=== PATIENT | male | born 1985 | race American Indian/Alaskan Native ===

== ENCOUNTER 2021-12-07 22:21 | Emergency (ER) | payer OTHER ==
[2021-12-07 22:52] VITALS: BP 128/84
--- NOTE | 2021-12-08 00:09 | Event Note ---
Date: 12/08/21 Patient ambulatory with police custody, and in no acute distress. Patient signed out AGAINST MEDICAL ADVICE prior to my personal evaluation Vital Signs 12/07/21 22:43 Temperature 98 F Pulse Rate 78 Respiratory 18 Rate Blood Pressure 128/84 O2 Sat by Pulse 100 Oximetry
== END 2021-12-08 00:20 | disposition left against medical advice (07) ==
LOC: ED 22:21
DX: Z13.30 Encounter for screening examination for mental health and behavioral disorders, unspecified (principal); Z53.21 Procedure and treatment not carried out due to patient leaving prior to being seen by health care provider